=== PATIENT | male | born 1990 ===

== ENCOUNTER 2023-05-07 11:28 | Emergency (ER) | payer BC ==
[2023-05-07] MEDS ORDERED: Diphtheria,Pertussis(Acell),Tetanus Vaccine 0.5 ML Syringe IM ONE (11:54)
== END 2023-05-07 13:10 | disposition home or self-care (01) ==
LOC: MW.ED 11:28
DX: S61.412A Laceration without foreign body of left hand, initial encounter (principal); Z23 Encounter for immunization; W26.8XXA Contact with other sharp object(s), not elsewhere classified, initial encounter
CPT/HCPCS: 73130-26-LT; 73130-LT; 90471; 90715; 99283; 99283-25